=== PATIENT | male | born 1975 | race Caucasian/White ===

== ENCOUNTER → 2017-04-30 | Outpatient (CLI) | payer OTHER, BC | LOC: BMCIMAGING 16:41 | PROVIDERS: ATTEND Family Medicine | DX: I82.611 Acute embolism and thrombosis of superficial veins of right upper extremity (principal) ==

== ENCOUNTER → 2017-05-01 | Day surgery (SDC) | payer BC, OTHER ==
[~2017-05-01] MED LIST: ALTEPLASE 2 MG VIAL ONE
== END | disposition home or self-care (01) ==
LOC: FIMAGING 15:14
PROVIDERS: ATTEND Radiology Diagnostic Radiology
DX: I82.611 Acute embolism and thrombosis of superficial veins of right upper extremity (principal)
CPT/HCPCS: J2997

== ENCOUNTER → 2017-05-07 | Outpatient (CLI) | payer OTHER, BC ==
[~2017-05-07] MED LIST changes: +LIDOCAINE 1% 300 MG/30 ML SDV ONE
== END ==
LOC: FIMAGING 10:30
PROVIDERS: ATTEND Radiology Diagnostic Radiology
DX: I82.611 Acute embolism and thrombosis of superficial veins of right upper extremity (principal)
CPT/HCPCS: J2997